=== PATIENT | female | born 1965 | race Caucasian/White ===

== ENCOUNTER 2023-04-21 00:30 | Emergency (ER) | payer BC ==
[~2023-04-21] VITALS: Ht 154.9 cm; Wt 45.4 kg
[2023-04-21] MEDS ORDERED: ACETAMINOPHEN ES 500 MG TABLET ONE ×2 (01:11→01:50)
[2023-04-21] MEDS: ACETAMINOPHEN ES 500 MG TABLET PO ONE ×2 (01:25→01:55)
[2023-04-21] MEDS ORDERED: KETOROLAC TROMETHAMINE INJ 30 MG/ML VIAL ONE (02:44)
[2023-04-21] MEDS ORDERED: KETOROLAC TROMETHAMINE INJ 60 MG/2 ML VIAL IM ONE (03:00)
[2023-04-21 03:13] VITALS: BP 128/79; TEMP 98.2; O2SAT 98
== END 2023-04-21 03:14 | disposition home or self-care (01) ==
LOC: ER 00:43
DX: S09.8XXA Other specified injuries of head, initial encounter (principal); V89.2XXA Person injured in unspecified motor-vehicle accident, traffic, initial encounter; Y93.89 Activity, other specified; Y92.89 Other specified places as the place of occurrence of the external cause; Y99.8 Other external cause status
CPT/HCPCS: 99285; 70450; 96372; 73564; J1885